=== PATIENT | male | born 1945 | race Caucasian/White ===

== ENCOUNTER → 2016-06-02 | Outpatient (CLI) | payer OTHER, MEDICARE | LOC: FIMAGING 12:35 | PROVIDERS: ATTEND Neurological Surgery | DX: M51.37 Other intervertebral disc degeneration, lumbosacral region (principal); Z98.1 Arthrodesis status ==

== ENCOUNTER 2016-06-27 06:29 | Day surgery (SDC) | payer OTHER, MEDICARE ==
[2016-06-27] MEDS ORDERED: FAMOTIDINE 20 MG TAB PO ONE (06:34)
[2016-06-27] MEDS ORDERED: DIAZEPAM 5 MG TAB PO ONE (06:34)
[2016-06-27] MEDS ORDERED: diphenhydrAMINE 25 MG CAP PO ONE (06:34)
[2016-06-27] MEDS ORDERED: NS 1,000 ML IV ONE (06:34)
[2016-06-27] MEDS ORDERED: ASPIRIN EC 325 MG TAB PO ONE (06:34)
--- NOTE | 2016-06-27 06:48 | CPEKG ---
Heart Rate: 68 RR Interval: 882 P-R Interval: 164 QRSD Interval: 96 QT Interval: 424 QTC Interval: 451 P Medway: 55 QRS [place]way: 68 T Wave Medway: 35 EKG Severity - NORMAL ECG - EKG Impression: SINUS RHYTHM Electronically Signed By: Slade Moore 27-Jun-2016 18:18:26
[2016-06-27 07:01] LABS: % IMMATURE GRANULYOCYTES 0.2 % (0.0-1.1); ABSOLUTE IMMATURE GRANULOCYTES 0.01 10^3/uL (0.00-0.10); ADD DIFF? NO; ADD MORPH? NO; ADD SCAN? NO; ATYPICAL LYMPHOCYTE FLAG 20 (0-99); FRAGMENT RBC FLAG 0 (0-99); HEMATOCRIT 41.6 % (40.0-51.0); HEMOGLOBIN 14.2 g/dL (13.7-17.5); LEFT SHIFT FLG 0 (0-99); LIPEMIA HEMOLYSIS FLAG 90 (0-99); MEAN CELL HEMOGLOBIN CONCENTR. 34.1 g/dL (32.4-36.7); MEAN CELL VOLUME 96.7 fL (81.5-99.8); MEAN PLATELET VOLUME 8.9 fL (8.7-11.7); PLATELET CLUMPS FLAG 0 (0-99); PLATELET COUNT 210 10^3/uL (150-400); RED CELL DISTRIBUTION WIDTH 13.3 % (11.5-15.2)
[2016-06-27 07:27] LABS: ANION GAP 8 mEq/L (8-16); CALCIUM 9.5 mg/dL (8.5-10.4); CARBON DIOXIDE 24 mEq/l (22-31); CHLORIDE 107 mEq/L (97-110); CHOLESTEROL 148 mg/dL (140-220); CHOLESTEROL/HDL RATIO 1.78 RATIO (1.00-4.97); GLOMERULAR FILTRATION RATE > 60; GLUCOSE 104 mg/dL (70-100); HIGH DENSITY LIPOPROTEIN 83 mg/dL (40-65); LDL/HDL RATIO 0.65 RATIO (1.00-3.64); LOW DENSITY LIPOPROTEIN 54 mg/dL (80-100); NON-HIGH DENSITY LIPOPROTEIN 65 mg/dL (90-129); POTASSIUM 4.9 mEq/L (3.5-5.2); SODIUM 139 mEq/L (134-144); TRIGLYCERIDE 58 mg/dL (40-150); VERY LOW DENSITY LIPOPROTEINS 11 mg/dL (8-25)
[2016-06-27 07:35] LABS: INR 0.93 (0.83-1.16); PROTIME(PATIENT) 12.4 SEC (12.0-15.0)
[2016-06-27] MEDS ORDERED: LIDOCAINE 1% 30 ML SDV ONE (08:08)
[2016-06-27] MEDS ORDERED: MIDAZOLAM 2 MG/2 ML VIAL ONE (08:09)
[2016-06-27] MEDS ORDERED: fentaNYL 100 MCG/2 ML INJ ONE (08:09)
[2016-06-27] MEDS ORDERED: IOPAMIDOL (ISOVUE-370) 150 ML BTL IV ONE (08:10)
--- NOTE | 2016-06-27 10:11 | CPIP ---
[f rep st] INVASIVE CARDIAC PROCEDURE DATE OF PROCEDURE: 06/27/2016 PROCEDURE PERFORMED: Diagnostic left heart catheterization. INDICATION FOR PROCEDURE: Abnormal nuclear stress test in the setting of known coronary artery dise ase. In summary, the patient is a pleasant, 70-year-old gentleman with a known history of coronary artery disease with previous PCI to the LAD, obtuse marginal branch, and PDA in 2005. He did undergo diag nostic left heart catheterization in 2006 demonstrating 20% to 25% distal left main tapering, 30% to 40% restenosis of the proximal LAD stent, and 20% to 30% in-stent stenosis to the stent to the PDA. He underwent an exercise nuclear stress test on June 20, 2016 in anticipation of lumbar spinal fu sidney surgery for next month. He was able to exercise for 6 minutes on a standard Stiven protocol. H alie did have [address]-segment depression at peak exercise and had new evidence of mid and ba tamera inferior wall ischemia as well as an isolated apical area of ischemia. These findings were new compared to previous nuclear study in August 2013. In the setting of new ischemic changes, markedly a bnormal exercise treadmill stress test with ischemic ECG changes, decision was made to perform diagn ostic left heart catheterization prior to his lumbar spinal fusion surgery. Risks and benefits of the procedure were discussed at length with the patient and his . All que stions were answered prior to procedure. DESCRIPTION OF PROCEDURE: After informed consent was obtained Mr. Lopez was brought to the [facility] catheterization lab where he was prepped and draped in a sterile fashion. Using 1% lidocaine, the right groin was anesthetized. Using modified Seldinger technique, a 6-American catheter was placed i nto the right common femoral artery without complication. A JL4 catheter was used to take images of the left coronary anatomy in multiple projections. JL4 catheter was exchanged over guidewire for J R4 catheter. JR4 catheter was used to take images of the right coronary anatomy in multiple project ions. JR4 catheter was exchanged over a guidewire for an angled pigtail catheter. Angled pigtail c atheter was used to cross the aortic valve. LVEDP was assessed. Left ventriculogram was performed. Pullback gradient was assessed. The angled pigtail catheter was removed over a guidewire without complication. Imaging of the right common femoral artery sheath site demonstrates appropriate placement of 6-Frenc h femoral artery catheter sheath with no evidence of complications. After reviewing images with Dr. Slade Moore, my interventional colleague, JL4 catheter was reinserte d, and a further image of the bifurcation of the left main into the LAD and circumflex vessel was ob tained at steeper BELIZEAN caudal angle. This confirmed minimal stenosis of the ostia of the LAD that di d not require FFR. CONCLUSION: Hemodynamics: AO pressure of 108/35, LV pressure 94/6. No aortic valve gradient. Left main: Left main bifurcates into the LAD and circumflex vessel. There is tapering in the dista l segment of the LAD of approximately 20% which is unchanged compared to previous diagnostic left he art catheterization in 2006. Left anterior descending demonstrates approximately 20% stenosis in the proximal LAD stent. There i s some mild luminal irregularities within the distal segment of the LAD with no flow-limiting steven ry artery disease. The left circumflex vessel demonstrates widely patent stent to the 1st obtuse marginal branch. Ther e are mild luminal irregularities within the distal circumflex vessel with no flow-limiting coronary artery disease. The right coronary artery is a large dominant vessel that bifurcates into the PDA and PLV branch. T here is approximately 20% narrowing in the PDA stent. There is some mild luminal irregularities wit hin the distal right coronary artery with no flow limiting disease. Left ventriculogram demonstrates LVEF of 60% to 65%. No aortic valve gradient. Right common femoral artery angiography demonstrates appropriate placement of the 6-American sheath. No evidence of trauma to the right common femoral artery. Appropriate for Angio-Seal. CONCLUSION: 1. Patent stents to the left anterior descending, obtuse marginal branch, and posterior descending artery. Minimal in-stent stenosis essentially unchanged from previous left heart catheterization in 2006. Stable 20% distal left main stenosis which is also unchanged compared to previous study in 2 007. 2. No flow-limiting coronary artery disease. 3. No indication for intervention. PLAN: 1. Patient will be discharged this afternoon on outpatient medications. 2. No further diagnostic testing required prior to spinal surgery with Dr. Gil Che next month. Of note, Angio-Seal was deployed successfully without complications. Patient tolerated the procedur e well without complications. /[id number]/MODL
== END 2016-06-27 17:28 | disposition home or self-care (01) ==
LOC: FCATH 06:29
PROVIDERS: ATTEND Internal Medicine Cardiovascular Disease
PROC: 4A023N7 Measurement of Cardiac Sampling and Pressure, Left Heart, Percutaneous Approach (ICD-10-PCS; principal; 2016-06-27)
PROC: B2111ZZ Fluoroscopy of Multiple Coronary Arteries using Low Osmolar Contrast (ICD-10-PCS; principal; 2016-06-27)
PROC: B2151ZZ Fluoroscopy of Left Heart using Low Osmolar Contrast (ICD-10-PCS; principal; 2016-06-27)
DX: R94.39 Abnormal result of other cardiovascular function study (principal); I25.10 Atherosclerotic heart disease of native coronary artery without angina pectoris; Z95.5 Presence of coronary angioplasty implant and graft; T82.857A Stenosis of other cardiac prosthetic devices, implants and grafts, initial encounter; I10 Essential (primary) hypertension; E78.5 Hyperlipidemia, unspecified
CPT/HCPCS: C1760; J1644; J2250; J3010; Q9967

== ENCOUNTER 2016-07-15 05:48 | Inpatient (IN) | payer OTHER, MEDICARE ==
[2016-06-29 14:30] LABS: % IMMATURE GRANULYOCYTES 0.4 % (0.0-1.1); ABSOLUTE IMMATURE GRANULOCYTES 0.03 10^3/uL (0.00-0.10); ADD DIFF? NO; ADD MORPH? NO; ADD SCAN? NO; ATYPICAL LYMPHOCYTE FLAG 10 (0-99); FRAGMENT RBC FLAG 0 (0-99); HEMATOCRIT 42.4 % (40.0-51.0); HEMOGLOBIN 14.5 g/dL (13.7-17.5); LEFT SHIFT FLG 0 (0-99); LIPEMIA HEMOLYSIS FLAG 90 (0-99); MEAN CELL HEMOGLOBIN CONCENTR. 34.2 g/dL (32.4-36.7); MEAN CELL VOLUME 96.6 fL (81.5-99.8); MEAN PLATELET VOLUME 9.1 fL (8.7-11.7); PLATELET CLUMPS FLAG 0 (0-99); PLATELET COUNT 230 10^3/uL (150-400); RED BLOOD CELL COUNT 4.39 10^6/uL (4.40-6.38); RED CELL DISTRIBUTION WIDTH 12.9 % (11.5-15.2)
[~2016-07-15 05:48] MED LIST: ATROPINE SULFATE 1 MG/10 ML SYR IVP PRN; HYDROCODONE/APAP 5/325 TAB PO PRN; NITROGLYCERIN 0.4 MG BTL SL PRN; ONDANSETRON 4 MG/2 ML VIAL IVP PRN; OXYCODONE/APAP 5/325 TAB PO PRN
[2016-07-15] MEDS ORDERED: CHLORHEXIDINE GLUC HIBICLENS 118 ML BTL TP ONE (06:00)
[2016-07-15] MEDS ORDERED: ceFAZolin 2 GM/DEXTROSE 100 ML IV ONE (06:00)
[2016-07-15] MEDS ORDERED: LIDOCAINE 1% 5 ML SDV ID PRN (06:35)
[2016-07-15] MEDS ORDERED: LR 1,000 ML IV ONE (06:35)
[2016-07-15] MEDS ORDERED: BUPIVACAINE/EPI 0.25% 30 ML SDV ONE (06:38)
[2016-07-15] MEDS ORDERED: BACITRACIN 50,000 UNITS/10 ML SYR IRR ONE ×2 (06:39→12:19)
[2016-07-15] MEDS ORDERED: MIDAZOLAM 2 MG/2 ML VIAL ONE (07:09)
[2016-07-15] MEDS ORDERED: PROPOFOL/EMULSION 500 MG/50 ML BOTTLE IV ONE ×5 (07:17→12:44)
[2016-07-15] MEDS ORDERED: METOCLOPRAMIDE 10 MG/2 ML VIAL ONE (07:18)
[2016-07-15] MEDS ORDERED: PHENYLEPHRINE 10 MG/ML SDV ONE (07:18)
[2016-07-15] MEDS ORDERED: ROCURONIUM 50 MG/5 ML VIAL ONE ×2 (07:18→08:27)
[2016-07-15] MEDS ORDERED: LIDOCAINE 2% 100 MG/5 ML SYR ONE (07:18)
[2016-07-15] MEDS ORDERED: DEXAMETHASONE 4 MG/ML VIAL ONE ×2 (07:18)
[2016-07-15] MEDS ORDERED: MAGNESIUM HYDROXIDE 30 ML UDCUP PO PRN (07:36)
[2016-07-15] MEDS ORDERED: THROMBIN (BOVINE) 20,000 UNIT VIAL TP ONE (07:36)
[2016-07-15] MEDS ORDERED: HYDROmorphONE/DILAUDID 1 MG/ML SYR IVP PRN (07:36)
[2016-07-15] MEDS ORDERED: POLYETHYLENE GLYCOL 3350 17 GM PKT PO PRN (07:36)
[2016-07-15] MEDS ORDERED: DIAZEPAM 10 MG/2 ML SYR IVP PRN (07:36)
[2016-07-15] MEDS ORDERED: BISACODYL 10 MG SUPP PR PRN (07:36)
[2016-07-15] MEDS ORDERED: ONDANSETRON 4 MG/2 ML VIAL IVP PRN (07:36)
[2016-07-15] MEDS ORDERED: HYDROmorphONE/DILAUDID 6 MG/30 ML PCA IV PRN (07:36)
[2016-07-15] MEDS ORDERED: HYDROCODONE/APAP 10/325 TAB PO PRN (07:36)
[2016-07-15] MEDS ORDERED: NALOXONE HCL 0.4 MG/ML INJ IVP PRN (07:36)
[2016-07-15] MEDS ORDERED: diphenhydrAMINE 25 MG CAP PO PRN (07:36)
[2016-07-15] MEDS ORDERED: ONDANSETRON DISINTEGRATING 4 MG TAB PO PRN (07:36)
[2016-07-15] MEDS ORDERED: LACTULOSE 20 GM/30 ML UDCUP PO PRN (07:36)
[2016-07-15] MEDS ORDERED: SUGAMMADEX SODIUM 200 MG/2 ML VIAL IVP ONE (12:46)
--- NOTE | 2016-07-15 14:39 | SOAPPROG ---
SOAP Progress Note Assessment/Plan: Post Op Visit: S: Awake and alert. NAD. Pt with expected lower back pain O: AFVSS/PERRLA/EOMI no droop CN 2-12 grossly intact +lt touch 5/5 BUE/BLE = CDI VALERIA in place A/P: 70 yo male that is s/p TLIF L5/S1 with PSF L4-S2 -orders in place -call with any questions or concerns -take medications as directed -pt seen by Dr Che as well 07/15/16 14:37 Objective: Vital Signs Temp Pulse Resp BP Pulse Ox 36.8 C 80 19 109/68 100 07/15/16 14:19 07/15/16 14:19 07/15/16 14:19 07/15/16 14:19 07/15/16 14:19 Laboratory Results 06/29/16 14:15 07/14/16 07/15/16 07/16/16 05:59 05:59 05:59 Intake Total 2950 Output Total 1170 Balance 1780 ICD10 Worksheet Patient Problems: Problems Problem Status Onset Arthrodesis status Acute Lumbar stenosis Acute - ICD10 Problem Qualifiers (1) Arthrodesis status
--- NOTE | 2016-07-15 15:50 | GOP ---
[f rep st] OPERATIVE REPORT DATE OF OPERATION: 07/15/2016 SURGEON: Nat Che MD AGILE JAVA DEVELOPER: Juan Moe PA-C PREOPERATIVE DIAGNOSIS: Degenerative spondylolisthesis L5-S1 with severe foraminal and central spin al stenosis L5-S1 with a disk herniation L5-S1, right greater than left lumbosacral radiculopathy, a djacent segment disease, severe disk degenerative disease L5-S1. POSTOPERATIVE DIAGNOSIS: Degenerative spondylolisthesis L5-S1 with severe foraminal and central spi nal stenosis L5-S1 with a disk herniation L5-S1, right greater than left lumbosacral radiculopathy, adjacent segment disease, severe disk degenerative disease L5-S1. PROCEDURE PERFORMED: 1. Removal of posterior segmental instrumentation of the lumbar spine at L2, L3, L4, L5. 2. Placement of new segmental instrumentation at L4, L5, S1, S2 (54772). 3. Same incision bone graft harvest, posterior lateral and intervertebral arthrodesis at L5-S1 with bilateral laminectomy, bilateral foraminotomy, and lateral recess decompressions via a right-sided approach with a right complete facetectomy for access to the intervertebral space at L5-S1 ([id number]). 4. Spinal stereotaxy. 5. Placement of biomechanical intervertebral device L5-S1. 6. Microscope. FINDINGS: ESTIMATED BLOOD LOSS: 400 cc. INDICATIONS: The patient is a 70-year-old who had a successful prior history of an L2-L5 fusion and appeared to demonstrate solid bony union. He had a degenerative scoliotic curve that was corrected and an excellent clinical result. Over the last several months, he has developed incapacitating pa in radiating down the right leg principally in an L5 type distribution but also possibly an S1 distr ibution and similar symptoms in the left flank. These were unresponsive to conservative measures an d were unrelenting. MRI demonstrated degenerative spondylolisthesis of L5 on S1 and complete collap se of the neural foramen as well as severe facet arthropathy at that level, and both of his L5 and S 1 nerve roots were being compressed rather dramatically, the right somewhat worse than the left. I suggested adjacent segment surgery. There was really no reasonable expectation that any further con servative measures would work in this case given the severity of the findings. There was no signifi cant development of any compressive lesions above his prior surgery. There was no evidence of compl ication from his prior surgery, and he appeared to be solidly fused. I discussed the risks of surge ry including the risk of pseudoarthrosis, adjacent segment disease, loss of fixation, screw and hard reyes malposition, malfunction, persistent symptoms, and possible need for more extensive surgery inc luding anterior surgery lumbar spine although I did not think this would be necessary. He knew that in time he may develop adjacent segment disease at the L1-2 segment above this lower construct fusi on, and he wanted to proceed. DESCRIPTION OF PROCEDURE: Patient was taken to the operating room, placed in the supine position. General anesthesia was begun. A Myrick catheter was placed by the nursing staff, and there were some blood coming from the Myrick catheter. Urology was consulted, and they came in and placed the Myrick catheter. A cystoscope or urethroscope was applied, and there was no evidence of trauma to the ure thra itself, but indeed, they noticed stenosis of the urethral caliber near the bladder. Please see Urology note for dictation of the procedure. He was then placed on the operating room table in the prone position. Care was taken to pad all poi nts of contact. His back was sterilely prepped and draped in usual fashion. We excised his prior a starla of hypertrophic scar at the superior aspect of his incision. The subcutaneous tissue was dissec [place] using a plasma blade down through the fascia, and a subperiosteal dissection was made down the r ostral lamina of L2 as well as the sacral lamina. We located the hardware. We exposed the hardware from L2 to L5 and removed the set screws and the crosslink. There is no problem with the hardware itself, and it was easily removed. There was solid bony union from L2 to L5. We tested Stealth ref erence frame to the L5 spinous process after denuding the L5-S1 hypertrophic facet joints and exposi ng the sacral ala bilaterally. We performed an O-arm spanning using frameless Stealth stereotaxy. We placed pedicle screws bilaterally at the sacrum and bilaterally at S2 to back up the S1 screws. They all stimulated at acceptable levels. We replaced the L4 and the L5 screws. We took 100 mm izaiah s, placed them down over the screws and distracted substantially at L5-S1 distracting fepg-gt-vfytk, yiow-hy-cuegf, doqx-zd-vtkdh in stepwise fashion to increase the height of the disk space at L5-S1. We got good distraction and some reduction of the spondylolisthesis. We removed all the soft tiss ue of the bone at L5-S1, harvested the L5 spinous process for autologous grafting purposes, introduc ed operating microscope, and under the scope, we drilled bilateral laminectomy at L5-S1. We opened ligamentum flavum and decompressed the thecal sac bilaterally including the exiting L5 nerve roots b ilaterally. Wide foraminotomies were performed bilaterally. On the right side, we removed the face t joint complex to access the intervertebral space. There was really very severe stenosis at this l evel, and it was completely decompressed. Via right-sided approach, we removed the disk and the car tilaginous endplates. We roughened the subchondral bone to create arthrodesis at L5-S1 and then use d a bone rasp to roughen the subchondral bone. We then placed a trial under fluoroscopic guidance a nd then chose an 8 x 20 mm device which was inserted along with bone autograft and 1 mg of BMP into the disk space. We elevated the device under fluoroscopic guidance, and it was in excellent positio n. There was no evidence of it contacting any of the lumbar nerve roots, and it was elevated in a t orque-limited way. After doing this, we decorticated all posterior lateral bone at L4, L5, and the sacrum to ensure posterolateral arthrodesis from L4 to the sacrum. We had a large amount of bony au tograft that we had obtained from our decompressive procedure, and we placed this and the remaining 1.0 mg of BMP posterolaterally bilaterally. The O arm images were inspected, and there was evidence of solid bony union from L2 all the way to L5, and we did not instrument above the L4 level. A sub fascial drain was placed. The incision was then closed in multiple layers using Vicryl sutures. Ru nning PDS was placed in the skin. COMPLICATIONS: None. INSTRUMENTATION USED: [employer] 4.75 mm Levelra system. /[id number]/MODL
[2016-07-15] MEDS: METHOCARBAMOL 750 MG TAB PO PRN (16:21)
[2016-07-15] MEDS: oxyCODONE IR 5 MG TAB PO PRN ×2 (16:21→20:16)
[2016-07-15] MEDS: NS W/ 20 KCl/L 1,000 ML IV SCH (16:23)
[2016-07-15] MEDS: LISINOPRIL 20 MG TAB PO SCH (17:21)
[2016-07-15] MEDS: CHOLECALCIFEROL VIT D3 1,000 UNITS TAB PO SCH (17:21)
[2016-07-15] MEDS: morphINE SR 15 MG TAB PO SCH ×2 (17:21→20:16)
[2016-07-15] MEDS: CETIRIZINE 10 MG TAB PO SCH (17:21)
[2016-07-15] MEDS: FAMOTIDINE 20 MG/NACL 50 ML IV SCH ×2 (17:21→22:36)
[2016-07-15] MEDS: ATORVASTATIN CALCIUM 40 MG TAB PO SCH (17:21)
[2016-07-15] MEDS: SENNOSIDES/DOCUSATE SODIUM TAB PO SCH ×2 (17:22→20:17)
--- NOTE | 2016-07-15 17:34 | POSTOPPROG ---
Post Op Note Date of Operation: 07/15/16 Surgeon: Lynette Springer (# [id number]) Anesthesia: GET(General Endotracheal) Pre-op Diagnosis: BPH, unable to catheterize Post-op Diagnosis: BPH, unable to catheterize, urethral trauma Procedure: Cystoscopy w/ complex urethral catheterization Findings: See op note Inf/Abcess present in the surg proc area at time of surgery?: No EBL: Minimal Complications: None Text Box - Additional Text Additional Text: Please do not remove Myrick until Monday AM, at the earliest.
[2016-07-15] MEDS: GABAPENTIN 300 MG CAP PO SCH (17:50)
--- NOTE | 2016-07-15 18:00 | GOP ---
[f rep st] OPERATIVE REPORT DATE OF OPERATION: 07/15/2016 SURGEON: Lynette Springer MD ANESTHESIA: General endotracheal. PREOPERATIVE DIAGNOSIS: BPH, inability to catheterize. POSTOPERATIVE DIAGNOSIS: 1. BPH, inability to catheterize. 2. Mild urethral trauma. PROCEDURE PERFORMED: Cystourethroscopy with complex urethral catheterization. FINDINGS: Very mild proximal posterior bulbar urethral trauma as a result of prior attempted cathet erizations. Lezc-jq-wxicywmi BPH also noted. INDICATIONS: This gentleman was scheduled to undergo complex back surgery with Dr. Che. Attempt s to place a Myrick catheter by the nursing staff on 2 occasions under anesthesia were unsuccessful a nd met with blood emanating from urethral meatus upon the 2nd attempt. I was asked to see the patie nt as a result. DESCRIPTION OF PROCEDURE: The patient was already in the operating room under general anesthesia on the transfer gurletcher. Genital exam revealed normal phallus with an adequate size meatus in the prop er position. Scrotal structures were unremarkable. The penis was sterilely prepped and draped in s tandard fashion. I initially attempted to place a 14-Micronesian coude tip catheter. However, resistanc e was met in the region of the prostatic urethra, and I was not confident that the catheter was inde ed in the bladder without sufficient return of urine. Therefore, decided to proceed with flexible c ystoscopy. The anterior urethra revealed no abnormalities. Anterior urethra revealed some very mil d 6 o'clock bulbar mucosal trauma from prior attempted catheterizations. The prostatic urethra reve aled mild to moderate BPH. Bladder neck was open. The scope was advanced into the bladder which wa s full of urine. The bladder was moderately trabeculated. Full cystoscopy was not performed at thi s time. Ureteral orifices were noted to be normal in shape and position along the trigone. I then advanced a 0.035 inch guidewire through the cystoscope and advanced it into the bladder. The cystos cope was withdrawn while keeping the guidewire in place. A 16-Micronesian [place] tip Myrick catheter was advanced over the guidewire until it was properly positioned in the bladder with 10 cc of sterile f luid placed in the balloon. Return of slightly pink-tinged urine was noted at that point. The cath eter was connected to bag drainage after removing the guidewire. The patient was then turned over t o the neurosurgery team for completion of the scheduled operation. DISPOSITION: Indwelling Myrick catheter should remain in place until Monday morning, or any time aft er that. This has been mentioned specifically to the neurosurgery team. /[id number]/MODL
[2016-07-15] MEDS: DIAZEPAM 5 MG TAB PO PRN (18:18)
[2016-07-15] MEDS: FAMOTIDINE 20 MG TAB PO SCH (22:33)
[2016-07-16 04:56] LABS: % IMMATURE GRANULYOCYTES 0.5 % (0.0-1.1); ABSOLUTE IMMATURE GRANULOCYTES 0.04 10^3/uL (0.00-0.10); ADD DIFF? NO; ADD MORPH? NO; ADD SCAN? NO; ATYPICAL LYMPHOCYTE FLAG 0 (0-99); FRAGMENT RBC FLAG 0 (0-99); HEMATOCRIT 28.4 % (40.0-51.0); HEMOGLOBIN 9.9 g/dL (13.7-17.5); LEFT SHIFT FLG 0 (0-99); LIPEMIA HEMOLYSIS FLAG 90 (0-99); MEAN CELL HEMOGLOBIN 33.7 pg (27.9-34.1); MEAN CELL HEMOGLOBIN CONCENTR. 34.9 g/dL (32.4-36.7); MEAN CELL VOLUME 96.6 fL (81.5-99.8); MEAN PLATELET VOLUME 9.1 fL (8.7-11.7); PLATELET CLUMPS FLAG 10 (0-99); PLATELET COUNT 159 10^3/uL (150-400); RED BLOOD CELL COUNT 2.94 10^6/uL (4.40-6.38); RED CELL DISTRIBUTION WIDTH 13.1 % (11.5-15.2)
[2016-07-16 05:10] LABS: ANION GAP 4 mEq/L (8-16); CALCIUM 8.6 mg/dL (8.5-10.4); CARBON DIOXIDE 26 mEq/l (22-31); CHLORIDE 105 mEq/L (97-110); CREATININE 0.9 mg/dL (0.7-1.3); GLOMERULAR FILTRATION RATE > 60; GLUCOSE 142 mg/dL (70-100); POTASSIUM 4.2 mEq/L (3.5-5.2); SODIUM 135 mEq/L (134-144)
[2016-07-16] MEDS: ATORVASTATIN CALCIUM 40 MG TAB PO SCH (08:46)
[2016-07-16] MEDS: FAMOTIDINE 20 MG TAB PO SCH ×2 (08:46→20:30)
[2016-07-16] MEDS: METHOCARBAMOL 750 MG TAB PO PRN ×2 (08:46→17:27)
[2016-07-16] MEDS: ACETAMINOPHEN 325 MG TAB PO PRN ×2 (08:46→17:27)
[2016-07-16] MEDS: morphINE SR 15 MG TAB PO SCH ×2 (08:46→20:31)
[2016-07-16] MEDS: CETIRIZINE 10 MG TAB PO SCH (08:46)
[2016-07-16] MEDS: LISINOPRIL 20 MG TAB PO SCH (08:46)
[2016-07-16] MEDS: CHOLECALCIFEROL VIT D3 1,000 UNITS TAB PO SCH (08:47)
[2016-07-16] MEDS: SENNOSIDES/DOCUSATE SODIUM TAB PO SCH ×2 (08:47→20:31)
--- NOTE | 2016-07-16 09:20 | SOAPPROG ---
SOAP Progress Note Assessment/Plan: Assessment: doing relatively well postop. will remove the drain tmrw Plan: 07/16/16 09:19 Subjective: Had some pain yesterday afternoon but is doing better now. passing gas. some residual right hip pain but much better than preop. Objective: Vital Signs Temp Pulse Resp BP Pulse Ox 36.9 C 82 14 124/60 H 94 07/16/16 08:00 07/16/16 08:00 07/16/16 08:00 07/16/16 08:46 07/16/16 08:00 Laboratory Results 07/16/16 04:30 07/16/16 04:30 07/15/16 07/16/16 07/17/16 05:59 05:59 05:59 Intake Total 3750 Output Total 2560 Balance 1190 maew ICD10 Worksheet Patient Problems: Problems Problem Status Onset Arthrodesis status Acute Lumbar stenosis Acute
[2016-07-16] MEDS: oxyCODONE IR 5 MG TAB PO PRN (09:47)
[2016-07-16] MEDS: GABAPENTIN 300 MG CAP PO SCH (17:23)
[2016-07-16] MEDS: NS W/ 20 KCl/L 1,000 ML IV SCH (19:30)
[2016-07-16] MEDS: DIAZEPAM 5 MG TAB PO PRN (20:31)
[2016-07-17] MEDS: ATORVASTATIN CALCIUM 40 MG TAB PO SCH (08:31)
[2016-07-17] MEDS: LISINOPRIL 20 MG TAB PO SCH (08:32)
[2016-07-17] MEDS: morphINE SR 15 MG TAB PO SCH ×2 (08:32→20:05)
[2016-07-17] MEDS: CETIRIZINE 10 MG TAB PO SCH (08:32)
[2016-07-17] MEDS: FAMOTIDINE 20 MG TAB PO SCH ×2 (08:32→20:05)
[2016-07-17] MEDS: SENNOSIDES/DOCUSATE SODIUM TAB PO SCH ×2 (08:32→20:08)
[2016-07-17] MEDS: CHOLECALCIFEROL VIT D3 1,000 UNITS TAB PO SCH (08:32)
--- NOTE | 2016-07-17 10:12 | SOAPPROG ---
SOAP Progress Note Assessment/Plan: Assessment: 70 male POD #2 sp L5/S1 TLIF and L4-S1 fusion doing well avina in place, will remove today right hip pain resolved pain well controlled overall Plan: Lumbar xrays today DC Elen PT/OT Change dressing 07/17/16 10:10 07/17/16 10:11 Subjective: lying in bed, comfortable, denies any new neuro changes Objective: Vital Signs Temp Pulse Resp BP Pulse Ox 36.6 C 78 12 114/54 L 98 07/17/16 07:38 07/17/16 07:38 07/17/16 07:38 07/17/16 07:38 07/17/16 07:38 Laboratory Results 07/16/16 04:30 07/16/16 04:30 07/16/16 07/17/16 07/18/16 05:59 05:59 05:59 Intake Total 3750 2650 Output Total 2560 2215 Balance 1190 435 VALERIA: 110ml Neuro: PRADO, Sens +LT ICD10 Worksheet Patient Problems: Problems Problem Status Onset Arthrodesis status Acute Lumbar stenosis Acute
[2016-07-17] MEDS: GABAPENTIN 300 MG CAP PO SCH (18:10)
[2016-07-17] MEDS: DIAZEPAM 5 MG TAB PO PRN (20:07)
[2016-07-17 23:38] VITALS: RESP 16
[2016-07-18] MEDS: METHOCARBAMOL 750 MG TAB PO PRN (06:02)
[2016-07-18] MEDS: ACETAMINOPHEN 325 MG TAB PO PRN (06:02)
--- NOTE | 2016-07-18 06:58 | NEUSURGPN ---
Date of Surgery: 07/15/16 Post Op Day: 3 Assessment/Plan: Assessment: 70 male POD #3 sp L5/S1 TLIF and L4-S1 fusion POD #3 Plan: -doing well -avina removed and pt is voiding well on own -right hip pain resolved -pain well controlled overall -lumbar xrays reviewed and look good-no complications noted -PT/OT -VALERIA removed and dressing changed -call NS with any changes or issues -take medications as directed -dc later today-pt in agreement -pt seen by Dr Che this am 07/15/16 14:37 Subjective: Awake and alert. NAD. Eating/drinking and voiding well. No velazquez/neck/chest/abd or gu complaints. No f/c/n/v/d. Objective: AFVSS/PERRLA/EOMI no droop CN 2-12 grossly intact +lt touch 5/5 BUE/BLE = CDI Neuro Check Frequency: per routine Urinary Catheter in Place: No Catheter Insertion Date: 07/15/16 - Physician Discussed Patient with : Chinedu Patient Seen by : Chinedu Neurosurgery Physical Exam - Vitals, I&O, Labs I and O 07/17/16 07/18/16 07/19/16 05:59 05:59 05:59 Intake Total 2650 1800 Output Total 2215 2620 80 Balance 435 -820 -80 Intake: Oral (ml) 1750 1800 IV Infused (ml) 900 NS W/ 20 KCl/L 1,000 ml @ 900 75 mls/hr IV CONT CHRISTOPHER Rx #:[id number] Output: Urine (ml) 1885 2400 Catheter 1885 700 Toilet 1300 Urinal 400 Wound Drainage (ml) 220 220 80 Triston Izaguirre 220 220 80 Wound Drainage (ml) 110 #1 Back Triston Izaguirre 110 Other: Intake Quantity Yes Sufficient Number of Voids Catheter 1 Toilet 1 Number of Stools Toilet 1 Bladder Scan Volume (ml) Toilet 675 Post Void Residual Scan Volume (ml) Toilet 810 Vital Signs Temp Pulse Resp BP Pulse Ox 37.3 C 76 16 119/60 96 07/17/16 23:38 07/17/16 23:38 07/17/16 23:38 07/17/16 23:38 07/17/16 23:38 Laboratory Results 07/16/16 04:30 07/16/16 04:30 ICD10 Worksheet Patient Problems: Problems Problem Status Onset Arthrodesis status Acute Lumbar stenosis Acute - ICD10 Problem Qualifiers (1) Arthrodesis status
[2016-07-18 07:22] VITALS: BP 115/59; PULSE 65; TEMP 98.2; O2SAT 98
[2016-07-18] MEDS: LISINOPRIL 20 MG TAB PO SCH (08:47)
[2016-07-18] MEDS: SENNOSIDES/DOCUSATE SODIUM TAB PO SCH (08:47)
[2016-07-18] MEDS: FAMOTIDINE 20 MG TAB PO SCH (08:47)
[2016-07-18] MEDS: CETIRIZINE 10 MG TAB PO SCH (08:47)
[2016-07-18] MEDS: CHOLECALCIFEROL VIT D3 1,000 UNITS TAB PO SCH (08:47)
[2016-07-18] MEDS: ATORVASTATIN CALCIUM 40 MG TAB PO SCH (08:48)
[2016-07-18] MEDS: morphINE SR 15 MG TAB PO SCH (08:50)
[2016-07-18] MEDS ORDERED: ENOXAPARIN 40 MG/0.4 ML SYR SC SCH (09:00)
== END 2016-07-18 10:46 | disposition home or self-care (01) | DRG 460 ==
LOC: F3N 05:48
PROVIDERS: ADMIT Neurological Surgery; ATTEND Neurological Surgery
PROC: 4A1004G Monitoring of Central Nervous Electrical Activity, Intraoperative, Open Approach (ICD-10-PCS; principal; 2016-07-15 07:30)
PROC: 0SG00AJ Fusion of Lumbar Vertebral Joint with Interbody Fusion Device, Posterior Approach, Anterior Column, Open Approach (ICD-10-PCS; principal; 2016-07-15 07:30)
PROC: 0SG30AJ Fusion of Lumbosacral Joint with Interbody Fusion Device, Posterior Approach, Anterior Column, Open Approach (ICD-10-PCS; principal; 2016-07-15 07:30)
PROC: 0SP30AZ Removal of Interbody Fusion Device from Lumbosacral Joint, Open Approach (ICD-10-PCS; principal; 2016-07-15 07:30)
PROC: 0T9B40Z Drainage of Bladder with Drainage Device, Percutaneous Endoscopic Approach (ICD-10-PCS; principal; 2016-07-15 07:30)
PROC: 01NB0ZZ Release Lumbar Nerve, Open Approach (ICD-10-PCS; principal; 2016-07-15 07:30)
DX: M43.17 Spondylolisthesis, lumbosacral region (principal); N40.0 Benign prostatic hyperplasia without lower urinary tract symptoms; M51.37 Other intervertebral disc degeneration, lumbosacral region; M54.17 Radiculopathy, lumbosacral region; M51.27 Other intervertebral disc displacement, lumbosacral region; I10 Essential (primary) hypertension; E78.5 Hyperlipidemia, unspecified; Z98.1 Arthrodesis status
CPT/HCPCS: 97116-GP; 97161-GP; 97165-GO; 97535-GO; C1713; C1769; G8978-GP-CK; G8979-GP-CI; G8980-GP-CI; G8987-GO-CI; G8988-GO-CI; G8989-GO-CI; J0690; J1100; J1170; J1650; J2001; J2250; J2370; J2704; J2765

== ENCOUNTER → 2016-09-14 | Outpatient (CLI) | payer OTHER, MEDICARE | LOC: FIMAGING 08:48 | PROVIDERS: ATTEND Nurse Practitioner | DX: Z47.89 Encounter for other orthopedic aftercare (principal); Z98.1 Arthrodesis status ==

== ENCOUNTER → 2016-12-14 | Outpatient (CLI) | payer OTHER, MEDICARE | LOC: FIMAGING 15:55 | PROVIDERS: ATTEND Psychiatry & Neurology Neurology | DX: M46.92 Unspecified inflammatory spondylopathy, cervical region (principal); M48.02 Spinal stenosis, cervical region; M50.21 Other cervical disc displacement, high cervical region; M48.03 Spinal stenosis, cervicothoracic region; M46.93 Unspecified inflammatory spondylopathy, cervicothoracic region; M50.31 Other cervical disc degeneration, high cervical region; M51.24 Other intervertebral disc displacement, thoracic region ==

== ENCOUNTER → 2016-12-14 | Outpatient (CLI) | payer OTHER, MEDICARE | LOC: FIMAGING 15:59 | PROVIDERS: ATTEND Nurse Practitioner | DX: M54.5 Low back pain (principal); Z98.1 Arthrodesis status; I70.8 Atherosclerosis of other arteries ==

== ENCOUNTER → 2016-12-21 | Outpatient (CLI) | payer OTHER, MEDICARE | PROVIDERS: ATTEND Psychiatry & Neurology Neurology | DX: R13.10 Dysphagia, unspecified (principal) | CPT/HCPCS: 74230; 92611; G8996; G8997; G8998 ==

== ENCOUNTER → 2017-04-24 | Outpatient (CLI) | payer OTHER, MEDICARE | LOC: FIMAGING 11:48 | PROVIDERS: ATTEND Nurse Practitioner | DX: Z98.1 Arthrodesis status (principal) ==

== ENCOUNTER → 2017-08-23 | Outpatient (CLI) | payer OTHER, MEDICARE | LOC: BMCIMAGING 13:30 | PROVIDERS: ATTEND Physician Assistant | DX: M25.512 Pain in left shoulder (principal); M24.012 Loose body in left shoulder ==

== ENCOUNTER → 2018-01-01 | Outpatient (CLI) | payer OTHER, MEDICARE | LOC: FIMAGING 13:09 | PROVIDERS: ATTEND Nurse Practitioner | DX: M53.82 Other specified dorsopathies, cervical region (principal); M48.02 Spinal stenosis, cervical region ==